=== PATIENT | female | born 1960 | race Caucasian/White ===

== ENCOUNTER 2016-09-16 09:49 | Outpatient (CLI) | payer OTHER ==
--- NOTE | 2016-09-16 13:09 | DIAGNOSTIC IMAGING REPORT ---
PROCEDURE: US COMPLETE PELVIC W/TRANSVAG INDICATION: LOWER ABDOMINAL PAIN TECHNIQUE: Transabdominal and endovaginal colunga scale and color Doppler sonographic images of the female pelvis were obtained. COMPARISON: None. FINDINGS: TRANSABDOMINAL SCANS: There is a mass in the right posterior to the uterus. No free fluid. There is a 3.6 cm simple mid right renal cyst. Normal left kidney. TRANSVAGINAL SCANS: The uterus measures 13.5 x 6.6 x 6.5 cm. Myometrium is unremarkable. Thickened endometrium measures 3.1 cm. Ovaries not visualized. There is a 15.8 x 7.6 x 5.3 cm thick walled mass with central necrosis/cystic component, demonstrating some wall vascularity. Mass is right posterior to the uterus. IMPRESSION: 1. 15.8 x 7.6 x 5.3 cm thick-walled right adnexal mass with central necrosis/cystic component. This may represent an ovarian mass. Recommend CT abdomen/pelvis with contrast. 2. Thickened endometrium which may represent blood, hyperplasia or neoplastic changes. Recommend tissue biopsy. 3. Results discussed with Dr. Rob.
== END 2016-09-16 23:00 ==
LOC: US SRH 09:49
DX: R10.30 Lower abdominal pain, unspecified (principal); R19.09 Other intra-abdominal and pelvic swelling, mass and lump; R93.8 Abnormal findings on diagnostic imaging of other specified body structures

== ENCOUNTER 2016-10-13 10:11 | Outpatient (CLI) | payer OTHER ==
--- NOTE | 2016-10-13 12:04 | DIAGNOSTIC IMAGING REPORT ---
PROCEDURE: CT ABD/PELVIS WITH CONTRAST CLINICAL INDICATION: PELVIC MASS, follow-up TECHNIQUE: 100 ml of Isovue 300 were injected intravenously and axial images were obtained of the entire abdomen and pelvis with sagittal and coronal reformations. COMPARISON: Pelvic ultrasound 09/16/2016 FINDINGS: ABDOMEN: Lung bases are clear. Heart size is normal. Liver, gallbladder, pancreas, spleen and adrenal glands are normal. Bilateral renal cysts, largest on the right measures 3.7 cm. Tortuous aorta. Single diverticulum in the splenic flexure. Trace ascites around the liver PELVIS: There is a 19 x 12.6 x 23.6 cm midline pelvic mass extending into the abdomen, with thickened kinsey, central necrosis and small ascites. The epicenter of the mass is in the upper pelvis and since the uterus has a relatively normal appearance, this is highly suggestive of ovarian mass rather than a pedunculated fibroid. There is a 3.8 cm low-density cervical mass versus blood products. Ovaries are not identified. Appendix not visualized. Mild degenerative changes of the spine. IMPRESSION: 1. 23.6 x 19 x 12.6 cm midline pelvic mass with central necrosis and small ascites. This suggests an ovarian mass (benign versus malignant) while a pedunculated fibroid is less likely. 2. 3.8 cm low density of cervical mass versus blood products 3. Recommend [employer] consult 4. Results discussed with Ms. Salguero, PAC All CT scans at this facility use dose modulation, iterative reconstruction, and/or weight-based dosing when appropriate to reduce radiation dose to as low as reasonably achievable.
== END 2016-10-13 23:00 ==
LOC: CT SRH 10:11
DX: R19.00 Intra-abdominal and pelvic swelling, mass and lump, unspecified site (principal)